=== PATIENT | female | born 2000 | race Two or more races ===

== ENCOUNTER 2022-03-15 11:28 | Emergency (ER) | payer OTHER ==
[~2022-03-15] VITALS: Ht 157.5 cm; Wt 64.1 kg
[2022-03-15 11:29] VITALS: BP 111/56
[2022-03-15] MEDS ORDERED: BENZONATATE 100MG CAPSULE PO ONE (13:15)
[2022-03-15] MEDS ORDERED: CEPACOL LOZENGE MT ONE (13:15)
[2022-03-15 14:21] LABS: HEMATOCRIT 40.6 % (36.0-47.0); HEMOGLOBIN 13.8 g/dl (12.0-15.5); MEAN CORPUSCULAR HEMOGLOBIN 32.3 pg (27.0-33.0); MEAN CORPUSCULAR VOLUME 95.1 fl (80.0-96.0); PLATELET COUNT, AUTOMATED 295 10^3/uL (150-450); RED BLOOD COUNT 4.27 10^6/uL (4.00-5.40); WHITE BLOOD COUNT 7.2 10^3/uL (4.0-10.0)
[2022-03-15] MEDS ORDERED: BENZ1LOZ9 PO (14:35)
[2022-03-15] MEDS ORDERED: BENZ200C70 PO (14:35)
[2022-03-15 14:41] LABS: BLOOD UREA NITROGEN 10 MG/DL (7-18); CALCIUM LEVEL 9.4 MG/DL (8.5-10.1); CARBON DIOXIDE LEVEL 30 MEQ/L (21-32); CHLORIDE LEVEL 108 MEQ/L (98-107); CREATININE FOR GFR 0.72 MG/DL (0.55-1.30); GLOMERULAR FILTRATION RATE > 60.0 (>60); GLUCOSE, FASTING 76 MG/DL (70-100); POTASSIUM SERUM 4.1 MEQ/L (3.5-5.1); SODIUM LEVEL 141 MEQ/L (136-145)
[2022-03-15 15:02] LABS: ATYPICAL LYMPH 6 % (0-5); EOSINOPHILS 4 % (0-3); LYMPHOCYTES 26 % (16-44); MONOCYTES 4 % (0-5); NEUTROPHILS 60 % (28-66)
[2022-03-15 15:03] LABS: PLATELET ESTIMATE NORMAL (NORMAL)
== END 2022-03-15 14:56 | disposition home or self-care (01) ==
LOC: M ED 11:28
DX: J06.9 Acute upper respiratory infection, unspecified (principal)

== ENCOUNTER 2022-05-03 18:50 | Emergency (ER) | payer OTHER ==
[~2022-05-03] VITALS: Ht 157.5 cm; Wt 62.4 kg
[~2022-05-03 18:50] MED LIST: BENZ1LOZ9 PO; BENZ200C70 PO
[2022-05-03] MEDS ORDERED: ONDA4TAB6 (18:54)
[2022-05-03] MEDS ORDERED: PROT1TAB2 (18:54)
[2022-05-03 21:21] LABS: BASO % 0.3 % (0.0-1.0); EOS # 0.2 10^3/uL (0.0-0.5); EOS % 2.5 % (0.0-3.0); HEMATOCRIT 41.3 % (36.0-47.0); HEMOGLOBIN 14.1 g/dl (12.0-15.5); LYMPH % 25.9 % (24.0-44.0); MEAN CORPUSCULAR HEMOGLOBIN 31.8 pg (27.0-33.0); MEAN CORPUSCULAR HGB CONC 34.1 g/dl (32.0-36.5); MONO # 0.7 10^3/uL (0.0-0.8); MONO % 8.4 % (2.0-8.0); NEUTROPHILS # 4.9 10^3/uL (1.5-8.5); NEUTROPHILS % 62.6 % (36.0-66.0); PLATELET COUNT, AUTOMATED 276 10^3/uL (150-450); RED BLOOD COUNT 4.44 10^6/uL (4.00-5.40); WHITE BLOOD COUNT 7.8 10^3/uL (4.0-10.0)
[2022-05-03 22:10] LABS: ALBUMIN 4.1 GM/DL (3.2-5.2); ALT/SGPT 15 U/L (12-78); BILIRUBIN,DIRECT 0.2 MG/DL (0.0-0.2); BILIRUBIN,TOTAL 1.2 MG/DL (0.2-1.0); BLOOD UREA NITROGEN 14 MG/DL (7-18); CALCIUM LEVEL 9.3 MG/DL (8.5-10.1); CARBON DIOXIDE LEVEL 27 MEQ/L (21-32); CHLORIDE LEVEL 108 MEQ/L (98-107); CREATININE FOR GFR 0.99 MG/DL (0.55-1.30); GLOMERULAR FILTRATION RATE > 60.0 (>60); GLUCOSE, FASTING 95 MG/DL (70-100); LIPASE 110 U/L (73-393); POTASSIUM SERUM 3.4 MEQ/L (3.5-5.1); SODIUM LEVEL 140 MEQ/L (136-145); TOTAL PROTEIN 7.3 GM/DL (6.4-8.2)
[2022-05-03 22:25] LABS: HCG, SERUM QUALITATIVE NEGATIVE (NEGATIVE)
[2022-05-04] MEDS ORDERED: NS 1,000 ML IV ONE (02:00)
[2022-05-04] MEDS ORDERED: METOCLOPRAMIDE INJ 10MG/2ML VIAL (J2765 PER 1) IV ONE (02:00)
[2022-05-04] MEDS ORDERED: KETOROLAC 30 MG/ML 1ML VIAL IV ONE (02:00)
[2022-05-04] MEDS ORDERED: diphenhydrAMINE 50MG/ML VIAL (J1200) IV ONE (02:00)
[2022-05-04] MEDS ORDERED: REGL10TA6 PO (04:25)
[2022-05-04 04:43] VITALS: BP 112/62
== END 2022-05-04 04:44 | disposition home or self-care (01) ==
LOC: M ED 18:50
DX: R55 Syncope and collapse (principal); R11.10 Vomiting, unspecified
CPT/HCPCS: 80048; 80076; 83690; 84703; 85025; 93005; 96361; 96374; 99284; J1200; J1885; J2765

== ENCOUNTER → 2022-11-14 | Outpatient (CLI) | payer OTHER ==
[~2022-11-14] MED LIST changes: +ONDA4TAB6; +PROT1TAB2; +REGL10TA6 PO
== END ==
LOC: M LAB 10:32
PROVIDERS: ATTEND Obstetrics & Gynecology
DX: Z32.00 Encounter for pregnancy test, result unknown (principal)

== ENCOUNTER → 2022-12-22 | Outpatient (CLI) | payer OTHER | LOC: M PLAIMG 08:21 | PROVIDERS: ATTEND Physician Assistant | DX: M25.572 Pain in left ankle and joints of left foot (principal); M79.672 Pain in left foot ==

== ENCOUNTER 2023-07-17 10:46 | Outpatient (CLI) | payer OTHER ==
[~2023-07-17] VITALS: Ht 157.5 cm; Wt 74.1 kg
[2023-07-17 11:09] VITALS: BP 134/64
[2023-07-17] MEDS ORDERED: ACET-897 PO (11:15)
[2023-07-17] MEDS ORDERED: PRENTAB9 PO (11:15)
[2023-07-17 12:12] VITALS: BP 127/75
[2023-07-17] MEDS ORDERED: ACETAMINOPHEN 500 MG TAB PO ONE (12:15)
[2023-07-17] MEDS ORDERED: CYCLOBENZAPRINE 5MG TABLET PO ONE (14:00)
== END 2023-07-17 12:48 | disposition home or self-care (01) ==
LOC: M LDO 10:46
PROVIDERS: ATTEND Obstetrics & Gynecology
DX: O26.892 Other specified pregnancy related conditions, second trimester (principal); M54.50 Low back pain, unspecified; R10.2 Pelvic and perineal pain; Z3A.24 24 weeks gestation of pregnancy
CPT/HCPCS: 59025; 81001; G0463